=== PATIENT | female | born 1940 | race Caucasian/White ===

== ENCOUNTER 2017-01-17 08:20 | Emergency (ER) | payer MEDICARE ==
[2017-01-17 08:25] VITALS: BP 161/82
--- NOTE | 2017-01-17 08:57 | UC ---
Harry Gore Salem, scribed for Liv Davila MD on 01/17/17 at 0840 . Skin Complaint HPI - HPI Summary HPI Summary: Patient is a 76 y/o F who presents to the with a tick bite and erythema in left armpit for an unknown period of time. She states that her and her attempted to remove the tick last night and partially succeeded. She reports a hx of tick bites: 4 ticks last year with circles, but she denies a hx of Lyme dz. Pt reports gardening outside often. She would like to take prophylactic dose of doxy, as in the past. Patients medication reviewed this visit. - History of Current Complaint Stated Complaint: TICK BITE Hx Obtained From: Patient Onset/Duration: Gradual Onset, Lasting Days, Still Present Skin Exposure Onset/Duration: Days Ago Timing: Constant Onset Severity: Moderate Current Severity: Moderate Location: Other - Left armpit. Character: Redness Aggravating: Nothing Alleviating: Nothing Associated Signs & Symptoms: Positive: Negative - Allergy/Home Medications Allergies/Adverse Reactions: Allergies Allergy/AdvReac Type Severity Reaction Status Date / Time Sulfa Drugs Allergy Severe Hives Verified 01/17/17 08:36 Iodine Allergy Unknown Unknown Verified 01/17/17 08:36 Reaction Details Chromium [From Ephadrene] Allergy Difficulty Verified 01/17/17 08:46 Breathing Ephedrine [From Ephadrene] Allergy Difficulty Verified 01/17/17 08:36 Breathing Epinephrine Allergy Difficulty Verified 01/17/17 08:36 Breathing Garcinia Cambogia Allergy Difficulty Verified 01/17/17 08:46 [From Ephadrene] Breathing Levocarnitine Allergy Difficulty Verified 01/17/17 08:46 [From Ephadrene] Breathing Procaine [From Novocain] Allergy Unknown Verified 01/17/17 08:36 Reaction Details Pyridoxine [From Ephadrene] Allergy Difficulty Verified 01/17/17 08:46 Breathing [place] Species Allergy Difficulty Verified 01/17/17 08:46 [From Ephadrene] Breathing Tyrosine [From Ephadrene] Allergy Difficulty Verified 01/17/17 08:46 Breathing Vitamin B12 [From Ephadrene] Allergy Difficulty Verified 01/17/17 08:46 Breathing Home Medications: Home Medications Diphenhydramine HCl [Benadryl Allergy 25 MG CAP] 25 mg PO PRN 01/17/17 [History] Review of Systems Constitutional: Negative Skin: Other - Tick bite and erythema in left armpit. 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 Father of PE age 49. - Social History Alcohol Use: Daily Alcohol Amount: 1 DRINK Substance Use Type: None Smoking Status (MU): Never Smoked Tobacco - Immunization History Most Recent Tetanus Shot: Pt states up to date. Physical Exam Triage Information Reviewed: Yes Appearance: Well-Appearing, No Pain Distress, Thin Vital Signs: Initial Vital Signs Temp 97.3 F 01/17/17 08:24 Pulse 84 01/17/17 08:24 Resp 16 01/17/17 08:24 BP 161/82 01/17/17 08:24 Pulse Ox 99 01/17/17 08:24 Elevated BP noted. Vital Signs Reviewed: Yes Neck exam: Normal Respiratory: Positive: Lungs clear, Normal breath sounds Cardiovascular: Positive: RRR, No Murmur Skin Exam: Other - right axilla with erythematous patch 1.5 cm diameter with central induration, consistent with tick bite. Small mouth pieces removed with splinter forceps. Course/Dx - Course Course Of Treatment: single dose of doxy for prevention of Lyme disease. - Differential Diagnoses - Skin Complaint Differential Diagnoses: Other - tick bite. - Diagnoses Provider Diagnoses: tick bite Discharge - Discharge Plan Condition: Stable Disposition: HOME Prescriptions: DOXYcycline CAP(*) [DOXYcycline 100MG CAP(*)] 2 cap PO ONCE #2 cap Patient Education Materials: Tick Bite (ED) Referrals: Grover Soriano MD [Primary Care Provider] - Additional Instructions: Your blood pressure was elevated today (161/82). Please, follow up with your primary care provider within the next few weeks. You will take a single dose of doxycycline to decrease the risk of Lyme disease from the tick bite which you have had. The documentation as recorded by the Harry balbuena Salem accurately reflects the service I personally performed and the decisions made by me, Liv Davila MD.
== END 2017-01-17 09:00 | disposition home or self-care (01) ==
LOC: UCEAST 08:20
DX: S40.861A Insect bite (nonvenomous) of right upper arm, initial encounter (principal); W57.XXXA Bitten or stung by nonvenomous insect and other nonvenomous arthropods, initial encounter; Y93.9 Activity, unspecified; Y92.9 Unspecified place or not applicable; Y99.9 Unspecified external cause status; R03.0 Elevated blood-pressure reading, without diagnosis of hypertension; Z86.718 Personal history of other venous thrombosis and embolism
CPT/HCPCS: 99212; G0463

== ENCOUNTER 2017-01-23 08:49 | Emergency (ER) | payer MEDICARE ==
[2017-01-23 09:26] VITALS: BP 140/73
--- NOTE | 2017-01-23 09:56 | UC ---
Hand/Wrist HPI - HPI Summary HPI Summary: Puncture wound to right index finger a couple of days ago---unsure on what, tetanus is up to date, . I concerned because finger is increasingly tender and she no has pain to her pip joint - History Of Current Complaint Chief Complaint: GIANNIkin Stated Complaint: SWOLLEN FINGER Time Seen by Provider: 01/23/17 09:51 Hx Obtained From: Patient ?: No Mechanism Of Injury: Puncture Wound--Unsure on what "A few days ago" Onset/Duration: Sudden Onset, Lasting Days, Still Present, Worse Since - past 24 hours Severity Initially: Mild Severity Currently: Mild Pain Intensity: 3 Pain Scale Used: 0-10 Numeric Character Of Pain: Throbbing Alleviating: Rest Associated Signs And Symptoms: Positive: Swelling, Redness Related History: Dominant Hand Right - Allergies/Home Medications Allergies/Adverse Reactions: Allergies Allergy/AdvReac Type Severity Reaction Status Date / Time Sulfa Drugs Allergy Severe Hives Verified 01/17/17 08:36 Iodine Allergy Unknown Unknown Verified 01/17/17 08:36 Reaction Details Chromium [From Ephadrene] Allergy Difficulty Verified 01/17/17 08:46 Breathing Ephedrine [From Ephadrene] Allergy Difficulty Verified 01/17/17 08:36 Breathing Epinephrine Allergy Difficulty Verified 01/17/17 08:36 Breathing Garcinia Cambogia Allergy Difficulty Verified 01/17/17 08:46 [From Ephadrene] Breathing Levocarnitine Allergy Difficulty Verified 01/17/17 08:46 [From Ephadrene] Breathing Procaine [From Novocain] Allergy Unknown Verified 01/17/17 08:36 Reaction Details Pyridoxine [From Ephadrene] Allergy Difficulty Verified 01/17/17 08:46 Breathing [place] Species Allergy Difficulty Verified 01/17/17 08:46 [From Ephadrene] Breathing Tyrosine [From Ephadrene] Allergy Difficulty Verified 01/17/17 08:46 Breathing Vitamin B12 [From Ephadrene] Allergy Difficulty Verified 01/17/17 08:46 Breathing PMH/Surg Hx/FS Hx/Imm Hx Previously Healthy: Yes - Surgical History Surgical History: Yes Surgery Procedure, Year, and Place: TONSILS, 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 Father of PE age 49. - Social History Occupation: Retired Lives: With Family Alcohol Use: Daily Alcohol Amount: 1 DRINK Substance Use Type: None Smoking Status (MU): Never Smoked Tobacco Have You Smoked in the Last Year: No - Immunization History Most Recent Tetanus Shot: Pt states up to date. Review of Systems Constitutional: Negative Skin: Negative Eyes: Negative ENT: Negative Respiratory: Negative Cardiovascular: Negative Gastrointestinal: Negative Genitourinary: Negative Motor: Negative Neurovascular: Negative Musculoskeletal: Negative - right index finger, red, warm and swollen-no drainage, Arthralgia Neurological: Negative Psychological: Negative All Other Systems Reviewed And Are Negative: Yes Physical Exam Triage Information Reviewed: Yes Appearance: Well-Appearing, No Pain Distress, Well-Nourished Vital Signs: Initial Vital Signs Temp 97.9 F 01/23/17 09:05 Pulse 89 01/23/17 09:05 Resp 18 01/23/17 09:05 BP 140/73 01/23/17 09:05 Pulse Ox 100 01/23/17 09:05 Vital Signs Reviewed: Yes Eye Exam: Normal Eyes: Positive: Conjunctiva Clear ENT Exam: Normal ENT: Positive: Normal ENT inspection, Hearing grossly normal. Negative: Nasal congestion, Nasal drainage, Trismus, Muffled/hoarse voice Dental Exam: Normal Neck exam: Normal Neck: Positive: Supple, Nontender Respiratory Exam: Normal Respiratory: Positive: Chest non-tender, No respiratory distress, No accessory muscle use Cardiovascular Exam: Normal Cardiovascular: Positive: RRR, Pulses Normal, Brisk Capillary Refill Musculoskeletal Exam: Normal Musculoskeletal: Positive: Strength Intact, ROM Intact, Edema @ - distal right index finger Neurological Exam: Normal Neurological: Positive: Alert, Muscle Tone Normal Psychological Exam: Normal Skin Exam: Normal Skin: Positive: breakdown - pw in distal right index finger Hand/Wrist Course/Dx - Course Course Of Treatment: warm soaks, augmentin, dsd, follow with Dr. Louie - Differential Dx/Diagnosis Differential Diagnosis/HQI/PQRI: Bursitis, Cellulitis, Contusion, Fracture, Infection, Tendonitis Provider Diagnoses: PW with infection right distal index finger Discharge - Discharge Plan Condition: Stable Disposition: HOME Prescriptions: Amoxicillin/Clavulanate TAB* [Augmentin TAB 875*] 875 mg PO BID #20 tab Patient Education Materials: Warm Compress or Soak (ED), Amoxicillin/ Clavulanate Potassium (By mouth), DASH Eating Plan (ED), Hypertension (ED) Referrals: Grover Soriano MD [Primary Care Provider] - 1 Week Additional Instructions: Your Blood Pressure today was 140/83. Which is just a little high please follow this with Dr. Louie---
== END 2017-01-23 10:03 | disposition home or self-care (01) ==
LOC: UCEAST 08:49
DX: S61.230A Puncture wound without foreign body of right index finger without damage to nail, initial encounter (principal); L08.9 Local infection of the skin and subcutaneous tissue, unspecified; X58.XXXA Exposure to other specified factors, initial encounter; Y93.9 Activity, unspecified; Y92.9 Unspecified place or not applicable; Y99.9 Unspecified external cause status
CPT/HCPCS: 99212; G0463

== ENCOUNTER 2017-04-20 08:59 | Emergency (ER) | payer MEDICARE ==
[2017-04-20 09:09] VITALS: BP 150/86
--- NOTE | 2017-04-20 09:33 | UC ---
Skin Complaint HPI - HPI Summary HPI Summary: 76 yo female abraided right [place] about a week ago now area starting to turn red no f/c no d/c no n/v/d - History of Current Complaint Chief Complaint: UCSkin Time Seen by Provider: 04/20/17 09:20 Stated Complaint: RED AREA ON LEG Hx Obtained From: Patient Onset/Duration: Gradual Onset, Lasting Days Onset Severity: Mild Current Severity: Mild Pain Intensity: 1 Pain Scale Used: 0-10 Numeric Location: Discrete Character: Redness Aggravating: Touch Alleviating: Nothing Associated Signs & Symptoms: Positive: Tenderness Related History: Trauma - Allergy/Home Medications Allergies/Adverse Reactions: Allergies Allergy/AdvReac Type Severity Reaction Status Date / Time Sulfa Drugs Allergy Severe Hives Verified 04/20/17 09:09 Iodine Allergy Unknown Unknown Verified 04/20/17 09:09 Reaction Details Chromium [From Ephadrene] Allergy Difficulty Verified 04/20/17 09:09 Breathing Ephedrine [From Ephadrene] Allergy Difficulty Verified 04/20/17 09:09 Breathing Epinephrine Allergy Difficulty Verified 04/20/17 09:09 Breathing Garcinia Cambogia Allergy Difficulty Verified 04/20/17 09:09 [From Ephadrene] Breathing Levocarnitine Allergy Difficulty Verified 04/20/17 09:09 [From Ephadrene] Breathing Procaine [From Novocain] Allergy Unknown Verified 04/20/17 09:09 Reaction Details Pyridoxine [From Ephadrene] Allergy Difficulty Verified 04/20/17 09:09 Breathing [place] Species Allergy Difficulty Verified 04/20/17 09:09 [From Ephadrene] Breathing Tyrosine [From Ephadrene] Allergy Difficulty Verified 04/20/17 09:09 Breathing Vitamin B12 [From Ephadrene] Allergy Difficulty Verified 04/20/17 09:09 Breathing Review of Systems Constitutional: Negative Skin: Negative Eyes: Negative ENT: Negative Respiratory: Negative Cardiovascular: Negative Gastrointestinal: Negative Genitourinary: Negative Motor: Negative Neurovascular: Negative Musculoskeletal: Negative Neurological: Negative Psychological: Negative All Other Systems Reviewed And Are Negative: Yes PMH/Surg Hx/FS Hx/Imm Hx Previously Healthy: Yes - hx cellulitis and ascending lymphangitis - Surgical History Surgical History: Yes Surgery Procedure, Year, and Place: TONSILS, 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 Father of PE age 49. - Social History Alcohol Use: Daily Alcohol Amount: 1 DRINK Substance Use Type: None Smoking Status (MU): Never Smoked Tobacco Have You Smoked in the Last Year: No - Immunization History Most Recent Tetanus Shot: Pt states up to date. Physical Exam Triage Information Reviewed: Yes Appearance: Well-Appearing, No Pain Distress, Well-Nourished Vital Signs: Initial Vital Signs Temp 97.2 F 04/20/17 09:04 Pulse 78 04/20/17 09:04 Resp 20 04/20/17 09:04 BP 150/86 04/20/17 09:04 Pulse Ox 99 04/20/17 09:04 Vital Signs Reviewed: Yes Eyes: Positive: Conjunctiva Clear ENT: Positive: Hearing grossly normal. Negative: Nasal congestion, Nasal drainage, Tonsillar exudate, Trismus, Muffled/hoarse voice Neck: Positive: Supple, Nontender Respiratory: Positive: Lungs clear, Normal breath sounds, No respiratory distress Cardiovascular: Positive: RRR, No Murmur Musculoskeletal: Positive: ROM Intact, No Edema Neurological: Positive: Alert Skin Exam: Other - see image Course/Dx - Diagnoses Provider Diagnoses: cellulitis Discharge - Discharge Plan Condition: Stable Disposition: HOME Prescriptions: Cephalexin CAP* [Keflex CAP*] 500 mg PO QID #28 cap Patient Education Materials: Cellulitis (ED) Referrals: Grover Soriano MD [Primary Care Provider] - 5 Days (if not better) Additional Instructions: elevate moist heat recheck for worsening symptoms Images Front/Back of Body, Lg ([place]): 1 - eschar and surrounding erthyema (mild). about 1 cm ring of erthema surrounding initial abrasion
== END 2017-04-20 09:30 | disposition home or self-care (01) ==
LOC: UCEAST 08:59
DX: L03.115 Cellulitis of right lower limb (principal); Z88.4 Allergy status to anesthetic agent; Z88.2 Allergy status to sulfonamides
CPT/HCPCS: 99212; G0463

== ENCOUNTER 2018-02-24 09:39 | Emergency (ER) | payer MEDICARE ==
--- OUTSIDE RECORDS SUMMARY | 2018-02-24 09:45 | XMS REPORT ---
:1940 External Reference #:[id number] Author Organization [facility] Address [address] [place] [address] Phone [phone] Care Team Providers Name Role Phone Grover Soriano MD Primary Care Physician Unavailable Payers Type Date Identification Numbers Payment Provider Subscriber Medicare Primary Policy Number: [id number] Medicare Catherine Foley PayID: [id number] [address] [place] [address] [facility] Part B Policy Number: [id number] [facility] Catherine Foley PayID: [id number] [address] [place] [address] Problems Date Description Provider Status Onset: 07/02/2007 Cramp in lower leg associated with Billy Mcleod M.D.FACNora Onset: 07/02/2007 Hyperlipidemia Billy Mcleod M.D.,FACP Onset: 07/02/2007 Hypercoagulability state Billy Mcleod M.D.,FACP Onset: 04/15/2014 Homocystinemia Billy Mcleod M.D.,FACP Onset: 04/22/2015 Postmenopausal osteoporosis Billy Mcleod M.D.,FACP Note: wrist Onset: 04/30/2017 Restless legs Grover Soriano M.D.,FACP Active Onset: 07/02/2007 Hypocalcemia Grover Soriano M.D.,FACP Inactive Inactive: 04/10/2013 Onset: 07/24/2007 Pure hypercholesterolemia Grover Soriano M.D.,FACP Inactive Inactive: 04/10/2013 Onset: 04/10/2013 Disorder of bone Grover Soriano M.D.,LIZZP Inactive Inactive: 04/22/2015 Onset: 07/02/2007 Osteoporosis Grover Soriano M.D.,FACP Resolved Resolved: 04/10/2013 Family History Date Family Member(s) Problem(s) Comments Father Phlebitis blood clots : (age 40 Years) Father due to Pulmonary Embolism (PE) Mother Blood Disorder clots Mother due to Pulmonary () Embolism (PE) Mother Rickets Mother Diabetes, Non Insulin Dependent First Son Tet[place] as Munday First Daughter Crohn's Disease Siblings 4 now 3 First Brother due to Cancer, Colon () First Brother due to Cancer, () Prostate Second Brother due to Unknown Causes () First Sister Diabetes, Non Insulin gestational Dependent Second Sister Alcoholism Social History Type Date Description Comments Marital Status Occupation Retired Cigarette Use Former Cigarette Smoker for 8 years in 20s, social ETOH Use 04/24/2016 Occasionally consumes wine Recreational Drug Use Denies Drug Use Smoking Patient is a former smoker smoked 3 cigarettes a day for ten years. quit smoking when she was 24 General Hx Text 2 kids Allergies, Adverse Reactions, Alerts Date Description Reaction Status Severity Comments 07/02/2007 Ephedrine HCL active 07/02/2007 Sulfonamides active rash 07/02/2007 Iodine active 08/01/2010 Fosamax active esophageal irritation 06/05/2011 Epinephrine active chest pain, angina 04/15/2014 Hydrocodone inactive Medications Medication Date Status Form Strength Qnty SIG Indications Ordering Provider Ropinirole HCL 04/24/ Active Tablets 0.5mg 90tabs 1 tab by R25.2 Clarisse Brito 2015 mouth Vanessa Soriano, every Eugenia,EVELIA night Calcium Citrate 04/24/ Active Tablets twice a Grover + 2015 day Vanessa Soriano M.D.,FACP Vitamin C / Active Chewtabs 1000mg 60unit 1 po qd Unknown 0000 s Glucosamine 00/ Active Capsules 250-200mg 1 pill Unknown Chondroitin 0000 daily unsure of mgs Vitamin B / Active Tablets 1 by mouth Unknown Complex 0000 every day Cephalexin 01/08/ Hx Capsules 500mg 21caps three Grover 2018 - times a Vanessa Soriano, 01/15/ day by Eugenia,FACP 2018 mouth Magnesium Oxide 04/24/ Hx Tablets 400(241.3M 60tabs 1 by mouth R25.2 Grover 2016 - g) mg in evening Vanessa Soriano, 02/04/ M.DSamm,FACP 2018 Medrol 04/17/ Hx Tablets 4mg 1pak medrol Grover 2015 - carlos Soriano, 04/24/ as MSammDSamm,FACP 2016 directed ( Not Taking ) Medrol 04/02/ Hx Tablets 4mg 1pak medrol Grover 2015 - carlos Soriano, 04/08/ as MSammDSamm,FACP 2016 directed Cephalexin 01/09/ Hx Capsules 500mg 21caps take one R21 Sy 2015 - capsule Zahida, [employer] 01/15/ every 8 2015 hours for 7 days Medrol 12/29/ Hx Tablets 4mg 1pak medrol S40.862A Grover 2015 - carlos Soriano, 01/02/ as Eugenia,FACP 2016 directed Diazepam 12/29/ Hx Tablets 5mg 10tabs 1/2-1 tab S40.862A Grover 2015 - po qhs prn Vanessa Soriano, 01/09/ M.DSamm,FACP 2016 Nexium 04/22/ Hx Capsules 20mg 30caps take 1 Grover 2014 - DR peng Soriano, 12/29/ every M.DSamm,FACP 2016 morning 30 minutes prior to eating Benadryl 12/30/ Hx Tablets 25mg 30tabs 2 tabs qd Buzz Pepe 2013 - hs Mar, 02/21/ M.D. 2014 Ibuprofen 06/18/ Hx Tablets 600mg 90tabs tid prn 726.19 Grover 2012 Xochitl Soriano, 12/30/ M.D.,FACP 2013 Doxycycline 06/03/ Hx Tablets 100mg 8tabs 2 tabs po Grover Hyclate 2012 - x1 then Vanessa Soriano, 06/18/ prn MSammD.,FACP 2012 Prednisone 03/11/ Hx Tablets 10mg 50tabs 6 tabs qd 053.9 Grover 2012 - for 2 D. Christie, 04/10/ , then M.D.,FACP 2012 reduce by 1 tab every 2 days until finished Ciprofloxacin 01/02/ Hx Tablets 250mg 14tabs one po bid 558.9 Gay HCL 2012 - for 7 days Kevin M.DSamm 2012 Flexeril 11/24/ Hx Tablets 10mg 20tabs 1 po tid Grover 2012 - prn Vanessa Soriano, .D.,FACP 2012 Prednisone 01/16/ Hx Tablets 10mg 26tabs 5 tab x2 692.6 Grover 2012 - day, 4 tab D. Christie, 04/03/ x 2day, 3 M.D.,FACP 2011 tab x 1 day, 2 tab x1day, 1 tab x 1day Valacyclovir 11/20/ Hx Tablets 1gm 21tabs po q8h for 053.9 Grover HCL 2011 - 1 wk D. Christie, .D.,FACP 2011 Prednisone 11/20/ Hx Tablets 10mg 50tabs 6 tabs qd 053.9 Grover 2011 - for 2 D. Christie, 01/16/ , then M.D.,FACP 2011 reduce by 1 tab every 2 days until finished Calcium 500 06/05/ Hx Tablets 500mg 1 po tid Grover Soriano, .D.,FACP 2014 Potassimin 04/13/ Hx Tablets 75mg Buzz Manuel, .D. 2015 Beulah-3 1450 04/13/ Hx Capsules 725mg qd Buzz Manuel, .D. 2018 Lovenox 05/26/ Hx Solution 60mg/0.6ML 10unit sc q12h Grover Soriano, .DSamm,FACP 2008 Warfarin Sodium 05/26/ Hx Tablets 5mg 100tab use as Grover Soriano, MSammDSamm,FACP 2009 Calcium 05/24/ Hx Tablets 600mg bid po Grover 2008 Xochitl Soriano, 10/18/ M.D.,FACP 2011 Vitamin D 05/24/ Hx Capsules 1000Unit po qd Grover 2008 - Vanessa Soriano, M.D.,FACP 2018 Fish Oil 07/24/ Hx Capsules 1000mg 1 PO bid 272.0 Grover 2006 Xochitl Soriano, M.D.,FACP 2009 Niacinamide 07/24/ Hx Tablets 500mg qd 272.0 Grover Soriano, M.D.,FACP 2008 Calcium/Vitamin 07/02/ Hx Capsules bid Grover Puente 2006 - Vanessa Soriano, M.D.,FACP 2008 Amoxicillin 07/02/ Hx Tablets 500mg 40tabs 2 tabs po Grover 2006 - bid for 10 D. Christie, 07/28/ M.D.,FACP 2007 Folic Acid / Hx Tablets 1mg 90tabs 1 tablet Grover 0000 - po qday Vanessa Soriano, M.D.,[facility] 2016 Vitamin B 00/00/ Hx Capsules 1 po qd Unknown Complex 0000 - 2011 Vitamin E /00/ Hx Capsules 400Unit 1 po qd Unknown 0000 - 2010 Prednisone /00/ Hx Tablets 20mg 14tabs 2 by mouth Grover 0000 - every day Vanessa Soriano, 04/27/ 4 days, M.D.,FACP 2013 then 1.5 tab qd for 2 days, then 1 tab qd for 2 day, then 1/2 tab qd for 2 days Calcium 00/00/ Hx Tablets 300-300mg 1 by mouth Unknown Magnesium 750 0000 - at 2 . 2016 Immunizations CPT Code Status Date Vaccine Reaction Lot # [id number] Given 04/30/2017 Influenza Virus Vaccine, [id number] Quadrivalent, Split, Preservative Free 86996 Given 05/22/2016 Influenza Virus Vaccine, no reaction noted ... [id number] Quadrivalent, Split, hh Preservative Free 62193 Given 05/28/2015 Influenza Virus Vaccine, [id number] Quadrivalent, Split, Preservative Free 35073 Given 04/22/2015 Pneumococcal Conjugate [id number] Vaccine 13 Valent For Intramuscular Use 46552 Given 05/21/2014 Influenza Virus Vaccine, [id number] Quadrivalent, Split, Preservative Free 60954 Given 12/30/2013 Tdap - [id number] Tetanus/Diptheria/Acellular Pertussis 23460 Given 05/18/2013 Flu Vaccine Split Virus [id number] Preservative Free For Indiv 3Yr Older [id number] Given 05/24/2012 Fluvirin Im 3Yrs And Older 13873 Given 04/03/2012 Pneumonia Vaccine [id number] 66263 Given 06/05/2011 Zoster (Zostavax) [id number] 05912 Given 05/22/2010 Influenza Virus 3Yrs & Over [id number] 15691 Given 06/21/2009 Influenza Virus Vaccine, Pandemic Formulation 20951 Given 06/21/2009 Influenza Virus Vaccine, [id number] Pandemic Formulation 47753 Given 06/21/2009 Administration Swine Flu Shot 25414 Given 06/02/2009 Influenza Virus 3Yrs & Over 30184 Given 06/02/2009 Influenza Virus 3Yrs & Over [id number] 34790 Given 06/10/2008 Influenza Virus 3Yrs & Over 11429 Given 06/10/2008 Influenza Virus 3Yrs & Over [id number] 56479 Given 07/02/2007 Influenza Virus 3Yrs & Over 34842 Given 07/02/2007 Influenza Virus 3Yrs & Over [id number] 47847 Given 06/18/2001 Pneumonia Vaccine Vital Signs Date Vital Result Comment 02/04/2018 Height 67.5 inches 5'7.50" Weight 125.75 lb Heart Rate 82 /min BP Systolic 139 mmHg BP Diastolic 78 mmHg O2 % BldC Oximetry 97 % BMI (Body Mass Index) 19.4 kg/m2 01/08/2018 Height 67.5 inches 5'7.50" Weight 126.00 lb Heart Rate 94 /min BP Systolic Sitting 132 mmHg BP Diastolic Sitting 80 mmHg Body Temperature 99.2 F O2 % BldC Oximetry 98 % BMI (Body Mass Index) 19.4 kg/m2 04/30/2017 Height 67.5 inches 5'7.50" Weight 129.75 lb Heart Rate 74 /min BP Systolic 140 mmHg BP Diastolic 82 mmHg BP Systolic Recheck 130 mmHg BP Diastolic Recheck 85 mmHg Body Temperature 96.8 F O2 % BldC Oximetry 99 % BMI (Body Mass Index) 20.0 kg/m2 04/25/2017 Weight 128.25 lb Heart Rate 81 /min BP Systolic 130 mmHg BP Diastolic 80 mmHg Body Temperature 98.8 F O2 % BldC Oximetry 97 % 02/26/2017 Weight 128.50 lb Heart Rate 83 /min BP Systolic 132 mmHg BP Diastolic 74 mmHg Body Temperature 97.0 F O2 % BldC Oximetry 83 % 01/22/2017 Weight 132.75 lb W/Shoes Heart Rate 85 /min BP Systolic Sitting 140 mmHg BP Diastolic Sitting 72 mmHg Body Temperature 98.6 F O2 % BldC Oximetry 96 % 04/24/2016 Height 66.75 inches 5'6.75" Weight 124.00 lb Heart Rate 82 /min BP Systolic Sitting 112 mmHg BP Diastolic Sitting 72 mmHg Body Temperature 98.3 F O2 % BldC Oximetry 97 % BMI (Body Mass Index) 19.6 kg/m2 01/10/2016 Weight 128.25 lb Heart Rate 81 /min BP Systolic Sitting 142 mmHg BP Diastolic Sitting 84 mmHg Body Temperature 98.9 F O2 % BldC Oximetry 98 % 12/30/2015 Height 67 inches 5'7" Weight 129.00 lb Heart Rate 86 /min BP Systolic Sitting 124 mmHg BP Diastolic Sitting 82 mmHg O2 % BldC Oximetry 95 % BMI (Body Mass Index) 20.2 kg/m2 05/28/2015 Body Temperature 98.6 F 04/22/2015 Height 67 inches 5'7" Weight 132.50 lb Heart Rate 75 /min BP Systolic Sitting 108 mmHg BP Diastolic Sitting 64 mmHg Body Temperature 98.3 F O2 % BldC Oximetry 98 % BMI (Body Mass Index) 20.8 kg/m2 03/10/2015 Height 67.5 inches 5'7.50" Weight 134.00 lb Heart Rate 76 /min BP Systolic Sitting 134 mmHg BP Diastolic Sitting 76 mmHg O2 % BldC Oximetry 96 % BMI (Body Mass Index) 20.7 kg/m2 02/21/2015 Weight 137.00 lb BP Systolic Sitting 113 mmHg BP Diastolic Sitting 71 mmHg Body Temperature 99.9 F O2 % BldC Oximetry 97 % 04/27/2014 Height 67.5 inches 5'7.50" Weight 137.25 lb Heart Rate 96 /min BP Systolic Sitting 126 mmHg BP Diastolic Sitting 74 mmHg Respiratory Rate 16 /min Body Temperature 98.2 F O2 % BldC Oximetry 97 % BMI (Body Mass Index) 21.2 kg/m2 04/15/2014 Weight 138.00 lb 01/21/2014 Height 67.5 inches 5'7.50" Weight 136.25 lb Heart Rate 96 /min BP Systolic Sitting 136 mmHg BP Diastolic Sitting 80 mmHg Body Temperature 99.0 F BMI (Body Mass Index) 21.0 kg/m2 12/30/2013 Height 67 inches 5'7" Weight 135.75 lb Heart Rate 104 /min BP Systolic Sitting 118 mmHg BP Diastolic Sitting 68 mmHg Body Temperature 99.9 F BMI (Body Mass Index) 21.3 kg/m2 06/18/2013 Weight 140.75 lb Heart Rate 86 /min BP Systolic Sitting 128 mmHg BP Diastolic Sitting 78 mmHg 05/18/2013 Weight 139.50 lb Heart Rate 102 /min BP Systolic Sitting 122 mmHg BP Diastolic Sitting 78 mmHg Body Temperature 99.7 F BMI (Body Mass Index) 5.1 kg/m2 04/10/2013 Height 67.5 inches 5'7.50" Weight 141.50 lb Heart Rate 90 /min BP Systolic Sitting 120 mmHg BP Diastolic Sitting 80 mmHg O2 % BldC Oximetry 96 % BMI (Body Mass Index) 21.8 kg/m2 01/02/2013 Weight 141.00 lb Heart Rate 87 /min BP Systolic Sitting 106 mmHg BP Diastolic Sitting 68 mmHg Body Temperature 99.3 F 04/03/2012 Height 67.5 inches 5'7.50" Weight 145.00 lb Heart Rate 84 /min BP Systolic Sitting 116 mmHg BP Diastolic Sitting 80 mmHg Respiratory Rate 14 /min Body Temperature 99.6 F lt ear BMI (Body Mass Index) 22.4 kg/m2 01/17/2012 Height 67.5 inches 5'7.50" Weight 144.75 lb Heart Rate 84 /min BP Systolic Sitting 138 mmHg BP Diastolic Sitting 78 mmHg BMI (Body Mass Index) 22.3 kg/m2 11/21/2011 Weight 144.00 lb Heart Rate 98 /min BP Systolic Sitting 136 mmHg BP Diastolic Sitting 88 mmHg Body Temperature 98.3 F oral 06/05/2011 Height 67.5 inches 5'7.50" Weight 147.00 lb Heart Rate 76 /min BP Systolic Sitting 120 mmHg BP Diastolic Sitting 76 mmHg BMI (Body Mass Index) 22.7 kg/m2 08/01/2010 Weight 151.00 lb Heart Rate 84 /min BP Systolic Sitting 122 mmHg BP Diastolic Sitting 70 mmHg 05/09/2010 Weight 151.00 lb Heart Rate 96 /min BP Systolic Sitting 138 mmHg BP Diastolic Sitting 80 mmHg 04/13/2010 Weight 152.00 lb Heart Rate 85 /min BP Systolic Sitting 138 mmHg BP Diastolic Sitting 80 mmHg 07/29/2009 Weight 156.00 lb Heart Rate 100 /min BP Systolic Sitting 130 mmHg BP Diastolic Sitting 74 mmHg 06/28/2009 Height 68.5 inches 5'8.50" Weight 157.50 lb Heart Rate 87 /min BP Systolic Sitting 130 mmHg BP Diastolic Sitting 76 mmHg Body Temperature 97.5 F BMI (Body Mass Index) 23.6 kg/m2 05/24/2009 Height 68.5 inches 5'8.50" Weight 152.00 lb Heart Rate 84 /min BP Systolic Sitting 130 mmHg BP Diastolic Sitting 86 mmHg BMI (Body Mass Index) 22.8 kg/m2 07/28/2008 Height 68.5 inches 5'8.50" Weight 151.00 lb Heart Rate 70 /min BP Systolic Sitting 116 mmHg BP Diastolic Sitting 68 mmHg BMI (Body Mass Index) 22.6 kg/m2 07/24/2007 Height 68.5 inches 5'8.50" Weight 148.00 lb Heart Rate 82 /min BP Systolic Sitting 118 mmHg BP Diastolic Sitting 80 mmHg BMI (Body Mass Index) 22.2 kg/m2 07/02/2007 Height 68.5 inches 5'8.50" Weight 149.00 lb Heart Rate 78 /min BP Systolic Sitting 118 mmHg BP Diastolic Sitting 80 mmHg BMI (Body Mass Index) 22.3 kg/m2 Results Test Date Test Result H/L Range Note CBC Auto Diff 01/09/2018 White Blood Count 4.9 10^3/uL 3.5-10.8 Red Blood Count 4.07 10^6/uL 4.0-5.4 Hemoglobin 13.1 g/dL 12.0-16.0 Hematocrit 39 % 35-47 Mean Corpuscular Volume 96 fL 80-97 Mean Corpuscular Hemoglobin 32 pg High 27-31 Mean Corpuscular HGB Conc 34 g/dL 31-36 Red Cell Distribution Width 13 % 10.5-15 Platelet Count 203 10^3/uL 150-450 Mean Platelet Volume 8.3 um3 7.4-10.4 Abs Neutrophils 3.3 10^3/uL 1.5-7.7 Abs Lymphocytes 1.0 10^3/uL 1.0-4.8 Abs Monocytes 0.4 10^3/uL 0-0.8 Abs Eosinophils 0.1 10^3/uL 0-0.6 Abs Basophils 0 10^3/uL 0-0.2 Abs Nucleated RBC 0 10^3/uL Granulocyte % 68.5 % 38-83 Lymphocyte % 20.3 % Low 25-47 Monocyte % 7.9 % High 0-7 Eosinophil % 2.4 % 0-6 Basophil % 0.9 % 0-2 Nucleated Red Blood Cells % 0 Laboratory test 01/09/2018 Partial Thrombo Time PTT 26.4 seconds 26.0- 36.3 finding Inr/Protime 01/09/2018 Inr 0.90 0.77-1.02 Lipid Profile 04/30/2017 Triglycerides 61 mg/dL 1 (Trig/Chol/HDL) Cholesterol 212 mg/dL 2 HDL Cholesterol 79.5 mg/dL 3 LDL Cholesterol 120 mg/dL 4 Laboratory test finding 04/30/2017 Vitamin D Total 25(Oh) 41.1 ng/mL 30- 50 5 Vitamin B12 369 pg/mL 180-914 6 Basic Metabolic Panel 04/30/2017 Sodium 136 mmol/L 133-145 Potassium 4.6 mmol/L 3.5-5.0 Chloride 99 mmol/L Low 101-111 Co2 Carbon Dioxide 31 mmol/L 22-32 Anion Gap 6 mmol/L 2-11 Glucose 90 mg/dL 70-100 Blood Urea Nitrogen 11 mg/dL 6-24 Creatinine 0.77 mg/dL 0.51-0.95 BUN/Creatinine Ratio 14.3 8-20 Calcium 9.8 mg/dL 8.6-10.3 Egfr Non- 72.5 >60 Egfr 93.2 >60 7 Basic Metabolic Panel 04/30/2016 Sodium 136 mmol/L 133-145 Potassium 4.2 mmol/L 3.5-5.0 Chloride 100 mmol/L Low 101-111 Co2 Carbon Dioxide 32 mmol/L 22-32 Anion Gap 4 mmol/L 2-11 Glucose 63 mg/dL Low 70-100 Blood Urea Nitrogen 15 mg/dL 6-24 Creatinine 0.76 mg/dL 0.51-0.95 BUN/Creatinine Ratio 19.7 8-20 Calcium 8.9 mg/dL 8.6-10.3 Egfr Non- 73.8 >60 Egfr 94.9 >60 8 Laboratory test finding 04/30/2016 Magnesium 2.1 mg/dL 1.9-2.7 CBC Auto Diff 04/30/2016 White Blood Count 5.2 10^3/uL 3.5-10.8 Red Blood Count 4.12 10^6/uL 4.0-5.4 Hemoglobin 13.3 g/dL 12.0-16.0 Hematocrit 40 % 35-47 Mean Corpuscular Volume 96 fL 80-97 Mean Corpuscular Hemoglobin 32 pg High 27-31 Mean Corpuscular HGB Conc 34 g/dL 31-36 Red Cell Distribution Width 13 % 10.5-15 Platelet Count 187 10^3/uL 150-450 Mean Platelet Volume 8 um3 7.4-10.4 Abs Neutrophils 3.7 10^3/uL 1.5-7.7 Abs Lymphocytes 0.9 10^3/uL Low 1.0-4.8 Abs Monocytes 0.4 10^3/uL 0-0.8 Abs Eosinophils 0.1 10^3/uL 0-0.6 Abs Basophils 0 10^3/uL 0-0.2 Abs Nucleated RBC 0 10^3/uL Granulocyte % 71.7 % 38-83 Lymphocyte % 17.0 % Low 25-47 Monocyte % 7.4 % 1-9 Eosinophil % 2.9 % 0-6 Basophil % 1.0 % 0-2 Nucleated Red Blood Cells % 0 Laboratory test finding 04/30/2016 Vitamin B12 498 pg/mL 180-914 9 Liver Function Panel 04/30/2016 Total Protein 6.0 g/dL Low 6.4-8.9 Albumin 4.0 g/dL 3.2-5.2 Globulin 2.0 g/dL 2-4 Albumin/Globulin Ratio 2.0 1-3 Total Bilirubin 0.60 mg/dL 0.2-1.0 Direct Bilirubin 0.10 mg/dL 0.03-0.18 Indirect Bilirubin 0.5 mg/dL 0.3-1.0 Alkaline Phosphatase 45 U/L 34-104 Alt 15 U/L 7-52 Ast 19 U/L 13-39 Lipid Profile (Trig/Chol/HDL) 04/19/2016 Triglycerides 119 mg/dL 10 Cholesterol 277 mg/dL 11 HDL Cholesterol 90.9 mg/dL 12 LDL Cholesterol 162 mg/dL 13 Laboratory test finding 2015 Surgical Pathology SEE RESULT BELOW 14 Laboratory test finding 2015 Clotest SEE RESULT BELOW 15 Lipid Profile (Trig/Chol/HDL) 03/14/2015 Triglycerides 83 mg/dL 16 Cholesterol 235 mg/dL 17 HDL Cholesterol 70.0 mg/dL 18 LDL Cholesterol 148 mg/dL 19 Laboratory test finding 03/14/2015 Vitamin D Total 25(Oh) 46.0 ng/mL 30- 50 20 CBC Auto Diff 03/14/2015 White Blood Count 3.5 10^3/uL Low 4.8-10.8 Red Blood Count 4.37 10^6/uL 4.0-5.4 Hemoglobin 14.1 g/dL 12.0-16.0 Hematocrit 43 % 35-47 Mean Corpuscular Volume 98 fL High 80-97 Mean Corpuscular Hemoglobin 32 pg High 27-31 Mean Corpuscular HGB Conc 33 g/dL 31-36 Red Cell Distribution Width 13 % 10.5-15 Platelet Count 183 10^3/uL 150-450 Mean Platelet Volume 8 um3 7.4-10.4 Abs Neutrophils 2.0 10^3/uL 1.5-7.7 Abs Lymphocytes 1.0 10^3/uL 1.0-4.8 Abs Monocytes 0.2 10^3/uL 0-0.8 Abs Eosinophils 0.2 10^3/uL 0-0.6 Abs Basophils 0.1 10^3/uL 0-0.2 Abs Nucleated RBC 0 10^3/uL Granulocyte % 57.2 % 38-83 Lymphocyte % 27.9 % 25-47 Monocyte % 5.8 % 1-9 Eosinophil % 7.0 % High 0-6 Basophil % 2.1 % High 0-2 Nucleated Red Blood Cells % 0.1 Comp Metabolic Panel 03/14/2015 Sodium 137 mmol/L 133-145 Potassium 4.3 mmol/L 3.5-5.0 Chloride 101 mmol/L 101-111 Co2 Carbon Dioxide 32 mmol/L 22-32 Anion Gap 4 mmol/L 2-11 Glucose 91 mg/dL 70-100 Blood Urea Nitrogen 17 mg/dL 6-24 Creatinine 0.92 mg/dL 0.51-0.95 BUN/Creatinine Ratio 18.5 8-20 Calcium 9.5 mg/dL 8.6-10.3 Total Protein 6.5 g/dL 6.4-8.9 Albumin 4.5 g/dL 3.2-5.2 Globulin 2.0 g/dL 2-4 Albumin/Globulin Ratio 2.3 1-3 Total Bilirubin 0.80 mg/dL 0.2-1.0 Alkaline Phosphatase 46 U/L 34-104 Alt 14 U/L 7-52 Ast 19 U/L 13-39 Egfr Non- 59.4 >60 Egfr 76.3 >60 21 Laboratory test finding 01/25/2014 CRP High Sensitivity 0.75 mg/L 22 Lyme Disease Serology Negative Negative 23 CBC Auto Diff 01/19/2014 White Blood Count 5.2 10^3/uL 4.8-10.8 Red Blood Count 3.93 10^6/uL Low 4.0-5.4 Hemoglobin 12.9 g/dL 12.0-16.0 Hematocrit 37 % 35-47 Mean Corpuscular Volume 94 fL 80-97 Mean Corpuscular Hemoglobin 33 pg High 27-31 Mean Corpuscular HGB Conc 35 g/dL 31-36 Red Cell Distribution Width 13 % 10.5-15 Platelet Count 192 10^3/uL 150-450 Mean Platelet Volume 8 um3 7.4-10.4 Abs Neutrophils 3.7 10^3/uL 1.5-7.7 Abs Lymphocytes 0.9 10^3/uL Low 1.0-4.8 Abs Monocytes 0.3 10^3/uL 0-0.8 Abs Eosinophils 0.2 10^3/uL 0-0.6 Abs Basophils 0.1 10^3/uL 0-0.2 Abs Nucleated RBC 0 10^3/uL Granulocyte % 71.5 % 38-83 Lymphocyte % 17.8 % Low 25-47 Monocyte % 5.8 % 1-9 Eosinophil % 3.8 % 0-6 Basophil % 1.1 % 0-2 Nucleated Red Blood Cells % 0 Comp Metabolic Panel 01/19/2014 Sodium 139 mmol/L 133-145 Potassium 4.0 mmol/L 3.7-5.6 Chloride 104 mmol/L 101-111 Co2 Carbon Dioxide 29 mmol/L 22-32 Anion Gap 6 mmol/L 2-11 Glucose 88 mg/dL 70-100 Blood Urea Nitrogen 17 mg/dL 6-24 Creatinine 0.80 mg/dL 0.51-0.95 BUN/Creatinine Ratio 21.3 High 8-20 Calcium 9.5 mg/dL 8.6-10.3 Total Protein 6.7 g/dL 6.4-8.9 Albumin 4.2 g/dL 3.2-5.2 Globulin 2.5 g/dL 2-4 Albumin/Globulin Ratio 1.7 1-3 Total Bilirubin 0.50 mg/dL 0.2-1.0 Alkaline Phosphatase 57 U/L 34-104 Alt 21 U/L 7-52 Ast 23 U/L 13-39 Egfr Non- 69.9 >60 Egfr 89.9 >60 24 Laboratory test finding 01/19/2014 Magnesium 2.1 mg/dL 1.9-2.7 Troponin I 0.00 ng/mL <0.03 25 TSH (Thyroid Stimulating Horm) 1.50 IU/mL 0.34-5.60 Erythrocyte Sed Rate 11 mm/Hr 0-40 Laboratory test finding 05/19/2013 C Reactive Protein < 0.5 mg/dL Less than 0.5 CBC With Manual Diff 05/19/2013 White Blood Count 8.4 10^3/uL 4.8-10.8 Red Blood Count 3.93 10^6/uL Low 4.0-5.4 Hemoglobin 12.8 g/dL 12.0-16.0 Hematocrit 38 % 35-47 Mean Corpuscular Volume 96 fL 80-97 Mean Corpuscular Hemoglobin 33 pg High 27-31 Mean Corpuscular HGB Conc 34 g/dL 31-36 Red Cell Distribution Width 13 % 10.5-15 Platelet Count 261 10^3/uL 150-450 Mean Platelet Volume 9 um3 7.4-10.4 Abs Neutrophils 5.9 10^3/uL 1.5-7.7 Abs Lymphocytes 1.1 10^3/uL 1.0-4.8 Abs Monocytes 0.6 10^3/uL 0-0.8 Abs Eosinophils 0.7 10^3/uL High 0-0.6 Abs Basophils 0.1 10^3/uL 0-0.2 Abs Nucleated RBC 0.01 10^3/uL Neutrophil % 65 % 38-83 Lymphocytes % 19 % Low 25-47 Monocytes % 9 % 0-13 Eosinophils % 7 % High 0-6 RBC Morphology Normal Normal Comp Metabolic Panel 05/19/2013 Sodium 135 mmol/L 133-145 Potassium 4.4 mmol/L 3.5-5.0 Chloride 99 mmol/L Low 101-111 Co2 Carbon Dioxide 29.0 mmol/L 22-32 Anion Gap 7.0 mmol/L 2-11 Glucose 83 mg/dL 70-100 Blood Urea Nitrogen 16 mg/dL 6-24 Creatinine 0.90 mg/dL 0.50-1.40 BUN/Creatinine Ratio 17.8 8-20 Calcium 9.6 mg/dL 8.1-9.9 Total Protein 6.1 g/dL Low 6.2-8.1 Albumin 4.0 g/dL 3.2-5.2 Globulin 2.1 g/dL 2-4 Albumin/Globulin Ratio 1.9 1-3 Total Bilirubin 0.9 mg/dL 0.4-1.5 Alkaline Phosphatase 53 U/L 30-110 Alt 18 U/L 14-54 Ast 24 U/L 12-42 Egfr Non- 61.2 >60 Egfr 78.7 >60 26 Laboratory test finding 05/19/2013 Lyme Disease Serology Negative Negative 27 Urinalysis 05/19/2013 Urine Color [place] Urine Appearance Turbid Urine Specific [place] 1.027 1.010-1.030 Urine Esterase 1+ Negative Urine Nitrate Negative Negative Urine Urobilinogen Negative E.U./dL Negative Urine Protein Negative mg/dL Negative Urine pH 5.5 5-9 Urine Blood Negative Negative Urine Ketones Trace mg/dL Negative Urine Bilirubin Negative Negative Urine Glucose Negative mg/dL Negative Laboratory test finding 05/19/2013 Erythrocyte Sed Rate 18 mm/Hr 0-40 Urine Microscopic 05/19/2013 Urine WBC 1+ (<10 /hpf) None Seen Urine Mucus Present /lpf Absent Urine Epithelial Cells 1+ Urothelial /hpf None Seen Bacteria Urine 3+ None Seen Urine Culture And Sensitivities 05/19/2013 Urine Culture (SEE NOTE) 28 Vitamin D, 25 Hydroxy 04/07/2013 25-Hydroxy Vitamin D2 <4.0 ng/mL 25-Hydroxy Vitamin D3 49 ng/mL 25-Hydroxy Vitamin D Total 49 ng/mL 29 Lipid Profile (Trig/Chol/HDL) 04/07/2013 Triglycerides 81 mg/dL 40-200 Cholesterol 248 mg/dL High Less than 200 HDL Cholesterol 78 mg/dL High 40-60 30 Cholesterol/HDL Ratio 3.2 Average 1-4.44 LDL Cholesterol 153.8 High Less Than 100 31 Comp Metabolic Panel 04/07/2013 Sodium 136 mmol/L 133-145 Potassium 5.4 mmol/L High 3.5-5.0 Chloride 98 mmol/L Low 101-111 Co2 Carbon Dioxide 33.0 mmol/L High 22-32 Anion Gap 5.0 mmol/L 2-11 Glucose 91 mg/dL 70-100 Blood Urea Nitrogen 13 mg/dL 6-24 Creatinine 0.80 mg/dL 0.50-1.40 BUN/Creatinine Ratio 16.3 8-20 Calcium 9.4 mg/dL 8.1-9.9 Total Protein 5.8 g/dL Low 6.2-8.1 Albumin 3.7 g/dL 3.2-5.2 Globulin 2.1 g/dL 2-4 Albumin/Globulin Ratio 1.8 1-3 Total Bilirubin 0.7 mg/dL 0.4-1.5 Alkaline Phosphatase 64 U/L 30-110 Alt 28 U/L 14-54 Ast 25 U/L 12-42 Egfr Non- 70.1 >60 Egfr 90.2 >60 32 Laboratory test 11/21/2011 Culture <SEE 33 finding Sensitivity/Gram St NOTE> Virus Culture - Dermal <SEE NOTE> 34 Lipid Panel - [facility] 06/01/2011 CPK (Creatine Kinase) 58 U/L 0-170 Comp Metabolic Panel 06/01/2011 Sodium 138 mmol/L 135-145 Potassium 4.4 mmol/L 3.5-5.0 Chloride 101 mmol/L 101-111 Co2 (Carbon Dioxide) 31.0 mmol/L 22-32 Anion Gap 6.0 mmol/L 2-11 35 Glucose 81 mg/dL 70-100 BUN 15 mg/dL 6-24 Creatinine 0.8 mg/dL 0.50-1.40 One Over Creatinine 1.25 BUN/Creatinine Ratio 18.8 8-20 Calcium 9.3 mg/dL 8.1-9.9 Total Protein 6.6 GM/DL 6.2-8.1 Albumin 4.4 GM/DL 3.2-5.2 Globulin 2.2 GM/DL 2-4 Albumin/Globulin Ratio 2.0 1-3 Bilirubin Total 1.1 mg/dL 0.4-1.5 36 Alkaline Phosphatase 48 U/L 30-110 Alt (SGPT) 17 U/L 14-54 Ast (Sgot) 22 U/L 12-42 eGFR Non- 70.5 > 60 eGFR 90.7 > 60 37 Lipid Profile (Trig/Chol/HDL) 06/01/2011 Triglyceride 76 mg/dL 40-200 Cholesterol 247 mg/dL High Less Than 200 38 High Density Lipoprotein 75 mg/dL High 40-60 39 Cholesterol/HDL Ratio 3.29 AVERAGE 1-4.44 Low Density Lipoprotein 157 mg/dL High Less Than 100 40 Laboratory test finding 05/09/2010 Prolactin 6.51 NG/ML 1.0-25.0 [place] (Antinuclear Antibodies) 05/09/2010 Antinuclear AB NEGATIVE Negative Laboratory test finding 05/09/2010 Syphilis IgG NON-REACTIVE Nonreactive 41 Laboratory test finding 04/28/2010 Iron Total 123 g/dL 28-170 Testosterone Total < 10 ng/dL Low 10-75 Thyroperoxidase AB 4.6 IU/mL Less Than 9.0 Dhea Sulfate 67.3 g/dL <15-157 42 Comp Metabolic Panel 04/13/2010 Sodium 140 mmol/L 135-145 Potassium 4.3 mmol/L 3.5-5.0 Chloride 103 mmol/L 101-111 Co2 (Carbon Dioxide) 30.0 mmol/L 22-32 Anion Gap 7.0 mmol/L 2-11 43 Glucose 87 mg/dL 70-100 44 BUN 21 mg/dL 6-24 Creatinine 0.80 mg/dL 0.50-1.40 One Over Creatinine 1.20 BUN/Creatinine Ratio 26.3 High 8-20 Calcium 9.5 mg/dL 8.1-9.9 45 Total Protein 6.3 GM/DL 6.2-8.1 Albumin 4.4 GM/DL 3.2-5.2 Globulin 1.9 GM/DL Low 2-4 Albumin/Globulin Ratio 2.3 1-3 Bilirubin Total 0.7 mg/dL 0.4-1.5 46 Alkaline Phosphatase 51 U/L 30-110 Alt (SGPT) 20 U/L 14-54 Ast (Sgot) 21 U/L 12-42 eGFR Non- 75.2 > 60 eGFR 90.9 > 60 47 CBC With Electronic Diff 04/13/2010 White Blood Count 4.4 CUMM Low 4.8- 10.8 Red Cell Count 4.23 CUMM 4.2-5.4 Hemoglobin 13.7 g/dL 12.0-16.0 Hematocrit 40 % 35-47 Mean Corpuscular Volume 93 um3 79-97 Mean Corpuscular Hemoglob 32 pg High 27-31 Mean Corpuscular HGB Cone 35 g/dL 32-36 Redcell Distribution WDTH 13 % 10.5-15 Platelet Count 187 CUMM 150-450 Mean Platelet Volume 8.1 um3 7.4-10.4 Gran % 68.8 % 38-83 Lymph % 22.0 % Low 25-47 Mononuclear % 5.2 % 1-9 Eosinophil % 3.0 % 0-6 Basophil % 1.0 % 0-2 Abs Lymphs 1.0 1.0-4.8 Abs Mononuclear 0.2 0-0.8 Absolute Neutrophil Count 3.0 1.5-7.7 Abs Eosinophils 0.1 0-0.6 Abs Basophils 0 0-0.2 Laboratory test finding 04/13/2010 Erythrocyte Sed Rate 7 MM/HR 0-40 Thyroxine Free 0.98 NG/ML 0.61-1.24 TSH 1.36 MIU/ML 0.34-5.60 Lyme Disease Serology Negative Negative 48 Laboratory test finding 08/22/2009 D Dimer Quantitative < 200 Less Than 230 Vitamin D, 25 Hydroxy 07/26/2009 25-Hydroxy Vitamin D2 <4.0 ng/mL () 25-Hydroxy Vitamin D3 43 ng/mL () 25-Hydroxy Vitamin D Total 43 ng/mL () 49 Laboratory test finding 07/26/2009 Calcium Ionized 4.65 mg/dL 4.65-5.28 Comp Metabolic Panel 07/26/2009 Sodium 139 mmol/L 135-145 Potassium 4.5 mmol/L 3.5-5.0 Chloride 103 mmol/L 101-111 Co2 (Carbon Dioxide) 30.0 mmol/L 22-32 Anion Gap 6.0 mmol/L 2-11 50 Glucose 91 mg/dL 70-100 51 BUN 14 mg/dL 6-24 Creatinine 0.70 mg/dL 0.50-1.40 One Over Creatinine 1.40 BUN/Creatinine Ratio 20.0 8-20 Calcium 9.2 mg/dL 8.1-9.9 52 Total Protein 6.1 GM/DL Low 6.2-8.1 Albumin 4.2 GM/DL 3.2-5.2 Globulin 1.9 GM/DL Low 2-4 Albumin/Globulin Ratio 2.2 1-3 Bilirubin Total 0.9 mg/dL 0.4-1.5 53 Alkaline Phosphatase 63 U/L 30-110 Alt (SGPT) 21 U/L 14-54 Ast (Sgot) 24 U/L 12-42 eGFR Non- 87.7 > 60 eGFR 106.1 > 60 54 Lipid Profile (Trig/Chol/HDL) 07/26/2009 Triglyceride 49 mg/dL 40-200 Cholesterol 245 mg/dL High Less Than 200 55 High Density Lipoprotein 75 mg/dL High 40-60 56 Cholesterol/HDL Ratio 3.27 AVERAGE 1-4.44 Low Density Lipoprotein 160 mg/dL High Less Than 100 57 Protime W/ Inr 07/19/2009 Prothrombin Time 33.2 Inr 2.8 Protime W/ Inr 07/05/2009 Prothrombin Time 35.5 Inr 3.0 Protime 06/21/2009 Inr 2.03 High 0.97-1.03 58 Protime 24.1 SEC High 11.5-12.2 59 Protime W/ Inr 06/07/2009 Prothrombin Time 35.3 Inr 2.9 Protime W/ Inr 06/02/2009 Prothrombin Time 24.2 Inr 2.0 Protime W/ Inr 05/30/2009 Prothrombin Time 16.8 Inr 1.4 Surgical Pathology 10/27/2008 Surgical Pathology <SEE 60 NOTE> Lipid Profile 07/23/2008 Triglyceride 73 mg/dL 40-200 61 (Trig/Chol/HDL) Cholesterol 234 mg/dL High Less Than 200 61, 62 High Density Lipoprotein 68 mg/dL High 40-60 61, 63 Cholesterol/HDL Ratio 3.44 AVERAGE 1-4.44 61 Low Density Lipoprotein 151 mg/dL High Less Than 100 61, 64 Basic Metabolic Panel 07/23/2008 Sodium 141 mmol/L 135-145 61 Potassium 4.7 mmol/L 3.5-5.0 61 Chloride 104 mmol/L 101-111 61 Co2 (Carbon Dioxide) 34.0 mmol/L High 22-32 61 Anion Gap 3.0 mmol/L 2-11 61, 65 Glucose 96 mg/dL 70-100 61, 66 BUN 18 mg/dL 6-24 61 Creatinine 0.80 mg/dL 0.50-1.40 61 One Over Creatinine 1.20 61 BUN/Creatinine Ratio 22.5 High 8-20 61 Calcium 9.5 mg/dL 8.1-9.9 61, 67 CBC With Electronic Diff 07/08/2007 White Blood Count 3.7 CUMM Low 4.8- 10.8 61 Abs Basophils 0 0-0.2 61 Abs Eosinophils 0.3 0-0.6 61 Absolute Neutrophil Count 2.1 1.5-7.7 61 Abs Lymphs 0.9 Low 1.0-4.8 61 Abs Mononuclear 0.3 0-0.8 61 Basophil % 1.0 % 0-2 61 Hematocrit 41 % 35-47 61 Hemoglobin 14.1 g/dL 12.0-16.0 61 Eosinophil % 7.9 % High 0-6 61 Gran % 58.3 % 38-83 61 Lymph % 25.0 % 20-45 61 Mean Corpuscular HGB Cone 34 g/dL 32-36 61 Mean Corpuscular Hemoglob 32 pg High 27-31 61 Mean Corpuscular Volume 94 um3 79-97 61 Mean Platelet Volume 8.1 um3 7.4-10.4 61 Mononuclear % 7.8 % 1-9 61 Platelet Count 226 CUMM 150-450 61 Red Cell Count 4.39 CUMM 4.2-5.4 61 Redcell Distribution WDTH 12 % 10.5-15 61 Laboratory test finding 07/08/2007 Calcium Ionized 4.61 mg/dL Low 4.65- 5.28 61 Basic Metabolic Panel 07/08/2007 One Over Creatinine 1.11 61 Anion Gap 6.0 mmol/L 2-11 61, 68 BUN 21 mg/dL 6-24 61 Calcium 9.6 mg/dL 8.7-10.2 61 Chloride 104 mmol/L 101-111 61 Co2 (Carbon Dioxide) 31.0 mmol/L 22-32 61 Glucose 100 mg/dL 70-105 61 Potassium 4.7 mmol/L 3.5-5.0 61 Sodium 141 mmol/L 135-145 61 BUN/Creatinine Ratio 23.3 High 8-20 61 Creatinine 0.9 mg/dL 0.5-1.4 61 Lipid Profile 07/08/2007 Cholesterol/HDL Ratio 3.85 AVERAGE 1-4.44 61 (Trig/Chol/HDL) Cholesterol 250 mg/dL High Less Than 200 61, 69 Triglyceride 67 mg/dL 40-200 61 High Density Lipoprotein 65 mg/dL High 40-60 61, 70 Low Density Lipoprotein 172 mg/dL High Less Than 100 61, 71 Laboratory test finding 07/08/2007 Homocysteine 15.7 UMOL/L High 3.3-10.4 61, 72 1 Desirable <150 Borderline high 150-199 High 200-499 Very High >500 2 Desirable <200 Borderline high 200-239 High >239 3 Low <40 Desirable: 40-60 High: >60 4 Desirable: <100 mg/dL Near Optimal: 100-129 mg/dL Borderline High: 130-159 mg/dL High: 160-189 mg/dL Very High: >189 mg/dL 5 FASTING 10 HOUR 6 Normal Range 180 to 914 Indeterminate Range 145 to 180 Deficient Range <145 7 Because ethnic data is not always readily available, this report includes an eGFR for both -Americans and non- Americans. The National Kidney Disease Education Program (NKDEP) does not endorse the use of the MDRD equation for patients that are not between the ages of 18 and 70, are , have extremes of body size, muscle mass, or nutritional status, or are non- or non-. According to the National Kidney Foundation, irrespective of diagnosis, the stage of the disease is based on the level of kidney function: Stage Description GFR(mL/min/1.73 m(2)) 1 Kidney damage with normal or decreased GFR 90 2 Kidney damage with mild decrease in GFR 60-89 3 Moderate decrease in GFR 30-59 4 Severe decrease in GFR 15-29 5 Kidney failure <15 (or dialysis) 8 Because ethnic data is not always readily available, this report includes an eGFR for both -Americans and non- Americans. The National Kidney Disease Education Program (NKDEP) does not endorse the use of the MDRD equation for patients that are not between the ages of 18 and 70, are , have extremes of body size, muscle mass, or nutritional status, or are non- or non-. According to the National Kidney Foundation, irrespective of diagnosis, the stage of the disease is based on the level of kidney function: Stage Description GFR(mL/min/1.73 m(2)) 1 Kidney damage with normal or decreased GFR 90 2 Kidney damage with mild decrease in GFR 60-89 3 Moderate decrease in GFR 30-59 4 Severe decrease in GFR 15-29 5 Kidney failure <15 (or dialysis) 9 Normal Range 180 to 914 Indeterminate Range 145 to 180 Deficient Range <145 10 Desirable <150 Borderline high 150-199 High 200-499 Very High >500 11 Desirable <200 Borderline high 200-239 High >239 12 Low <40 Desirable: 40-60 High: >60 13 Desirable: <100 mg/dL Near Optimal: 100-129 mg/dL Borderline High: 130-159 mg/dL High: 160-189 mg/dL Very High: >189 mg/dL 14 SEE RESULT BELOW Name: ERICDARIANCATHERINE P : [address]: Nitesh Aguilar MD Acct: [id number] Unit: [id number] AGE: 75 Location: [facility] Re07/21/15 SEX: F Status: REG REF SPEC: [id number] KRISTINE: 07/21/15- SUBM DR: Nitesh Aguilar MD REQ: [id number] RECD: 07/21/151220 STATUS: EMILIA WHYTE DR: Grover Soriano MD _ ORDERED: LEVEL IV FINAL DIAGNOSIS Gastroesophageal junction, biopsy: -- Squamous and columnar mucosa with chronic inflammation and focal intestinal metaplasia. -- Negative for dysplasia. CLINICAL HISTORY Epigastric pain POST-OPERATIVE DIAGNOSIS Esophagus - ? short segment Rodriguez's biopsied, no erosion; stomach - small hiatal hernia, otherwise normal, no ulcer; duodenum - normal bulb to third portion. ? short segment Rodriguez's biopsied, hiatal hernia GROSS DESCRIPTION The specimen is received in formalin labeled, [place] Biopsy, and consists of two larsen-pink irregular soft tissue fragments averaging 0.2 x 0.2 x 0.1 cm, which are submitted entirely in one cassette. Signed (signature on file) Irene Sandoval MD 12/01 1334 END OF REPORT * ML=Testing performed at Main Lab DEPARTMENT OF PATHOLOGY, [address] [place] [address] Esau Elziondo M.D. Director [facility] # [id number] 15 SEE RESULT BELOW Name: CATHERINE FOLEY : [address]: Nitesh Aguilar MD Acct: [id number] Unit: [id number] AGE: 75 Location: [facility] Re07/21/15 SEX: F Status: REG REF SPEC: [id number] KRISTINE: 07/21/[address] [facility] [address]: Nitesh Aguilar MD REQ: [id number] RECD: 07/21/15 STATUS: LUIS WHYTE DR: Grover Soriano MD _ SOURCE: [facility]: ORDERED: Clotest Procedure Result Reported Site Clotest Final 07/22/15743 ML Clotest Negative * ML - MAIN LAB ([facility]) . END OF REPORT * ML=Testing performed at Main Lab DEPARTMENT OF PATHOLOGY, [address] [place] [address] Esau Elizondo M.D. Director [facility] # [id number] 16 Desirable <150 Borderline high 150-199 High 200-499 Very High >500 17 Desirable <200 Borderline high 200-239 High >239 18 Low <40 Desirable: 40-60 High: >60 19 Desirable: <100 mg/dL Near Optimal: 100-129 mg/dL Borderline High: 130-159 mg/dL High: 160-189 mg/dL Very High: >189 mg/dL 20 FASTING 10 HOUR 21 Because ethnic data is not always readily available, this report includes an eGFR for both -Americans and non- Americans. The National Kidney Disease Education Program (NKDEP) does not endorse the use of the MDRD equation for patients that are not between the ages of 18 and 70, are , have extremes of body size, muscle mass, or nutritional status, or are non- or non-. According to the National Kidney Foundation, irrespective of diagnosis, the stage of the disease is based on the level of kidney function: Stage Description GFR(mL/min/1.73 m(2)) 1 Kidney damage with normal or decreased GFR 90 2 Kidney damage with mild decrease in GFR 60-89 3 Moderate decrease in GFR 30-59 4 Severe decrease in GFR 15-29 5 Kidney failure <15 (or dialysis) 22 Low risk: <1.00 Average risk: 1.00-3.00 High risk: >3.00 23 Serologic response to B. burgdorferi infection is not detected, but cannot rule out early infection during which low or undetectable antibody levels to B. burgdorferi may be present. If clinically indicated, a new serum specimen should be submitted in 7-14 days. Test Performed by: [place] [address] Snow Shoveler: Mc García III, M.D. 24 Because ethnic data is not always readily available, this report includes an eGFR for both -Americans and non- Americans. The National Kidney Disease Education Program (NKDEP) does not endorse the use of the MDRD equation for patients that are not between the ages of 18 and 70, are , have extremes of body size, muscle mass, or nutritional status, or are non- or non-. According to the National Kidney Foundation, irrespective of diagnosis, the stage of the disease is based on the level of kidney function: Stage Description GFR(mL/min/1.73 m(2)) 1 Kidney damage with normal or decreased GFR 90 2 Kidney damage with mild decrease in GFR 60-89 3 Moderate decrease in GFR 30-59 4 Severe decrease in GFR 15-29 5 Kidney failure <15 (or dialysis) 25 Reference Range and Interpretation: TnI (ng/mL) Interpretation Less Than 0.03 ng/mL Not supportive of diagnosis of [place] 0.03 - 0.50 ng/mL Indeterminate: suggest serial studies if clinically indicated. Greater than 0.5 ng/mL Consistent with diagnosis of IN 26 Because ethnic data is not always readily available, this report includes an eGFR for both -Americans and non- Americans. The National Kidney Disease Education Program (NKDEP) does not endorse the use of the MDRD equation for patients that are not between the ages of 18 and 70, are , have extremes of body size, muscle mass, or nutritional status, or are non- or non-. According to the National Kidney Foundation, irrespective of diagnosis, the stage of the disease is based on the level of kidney function: Stage Description GFR(mL/min/1.73 m(2)) 1 Kidney damage with normal or decreased GFR 90 2 Kidney damage with mild decrease in GFR 60-89 3 Moderate decrease in GFR 30-59 4 Severe decrease in GFR 15-29 5 Kidney failure <15 (or dialysis) 27 Serologic response to B. burgdorferi infection is not detected, but cannot rule out early infection during which low or undetectable antibody levels to B. burgdorferi may be present. If clinically indicated, a new serum specimen should be submitted in 7-14 days. Test Performed by: [facility] - [address] [address] Snow Shoveler: Mc García III, M.D. 28 RUN DATE: 05/21/13 [facility] LAB LIVE PAGE 1 RUN TIME: [address] [place] [address] Specimen Inquiry Name: CATHERINE FOLEY : [address]: Clarisse Soriano MD Acct: [id number] Unit: [id number] AGE: 72 Location: [facility] Re05/19/13 SEX: F Status: REG REF SPEC: [id number] KRISTINE: 05/18/13-[address]: Grover Soriano MD REQ: [id number] RECD: 05/19/13 STATUS: COMP _ SOURCE: URINE SPDESC: ORDERED: Urine Culture QUERIES: Medent Number [id number] Procedure Result Verified Site Urine Culture Final 05/21/13- 1035 ML Organism 1 NORMAL CHUCK [place] Count 1-10,000 (Few) CFU/ML END OF REPORT * ML=Testing performed at Main Lab DEPARTMENT OF PATHOLOGY, [address] [place] [address] Esau Elizondo M.D. Director [facility] Permit #[id number] 29 -- REFERENCE VALUE -- 25-HYDROXY D TOTAL (D2+D3) Optimum levels in the normal population are 25-80 Test Performed by: [address] [address] Snow Shoveler: Mc García III, M.D. 30 HDL Interpretation: Undesirable: High Risk: Less than 40 mg/dL Desirable: Low Risk: Greater than 60 mg/dL 31 LDL Interpretation: Low Risk Optimal Level: LDL Less than 100 mg/dL Near or Above Optimal: LDL 100-129 mg/dL Borderline High Risk: LDL 130-159 mg/dL High Risk: LDL 160-189 mg/dL Very High Risk: LDL Greater than 189 mg/dL 32 Because ethnic data is not always readily available, this report includes an eGFR for both -Americans and non- Americans. The National Kidney Disease Education Program (NKDEP) does not endorse the use of the MDRD equation for patients that are not between the ages of 18 and 70, are , have extremes of body size, muscle mass, or nutritional status, or are non- or non-. According to the National Kidney Foundation, irrespective of diagnosis, the stage of the disease is based on the level of kidney function: Stage Description GFR(mL/min/1.73 m(2)) 1 Kidney damage with normal or decreased GFR 90 2 Kidney damage with mild decrease in GFR 60-89 3 Moderate decrease in GFR 30-59 4 Severe decrease in GFR 15-29 5 Kidney failure <15 (or dialysis) 33 RUN DATE: 11/23/11 [facility] NMI LIVE PAGE 1 RUN TIME: 1102 Specimen Inquiry RUN USER: INTERFACE Name: CATHERINE FOLEY Status: REG REF Re11/21/11 Age/Sex: 71/F Unit#: [id number] Location: [facility] : 38 SPEC #: [id number] KRISTINE: 11/21/11 STATUS: COMP REQ #: [id number] RECD: 11/21/[address] [facility] [address]: Christie CALLEJAS,Grover Mendez SOURCE: [facility] [place]: 11/21/[address] [facility] [address]: Nahed CALLEJAS, Latisha Monsalve SPDESC: SKIN ORDERED: CULT SENS/GS QUERIES: MEDENT REQUISITION # [id number] ACT WKST: B 11/23/11 #1 Procedure Result Verified Site > CULTURE SENSITIVITY Final 11/23/11- 1102 ML Organism 1 STAPHYLOCOCCUS AUREUS QUANTITY FEW 1. STAPHYLOCOCCUS AUREUS RX M.I.C. ------ --------- RIFAMPIN S <=0.5 LEVOFLOXACIN S <=0.12 TETRACYCLINE S <=1 CIPROFLOXACIN S <=0.5 CLINDAMYCIN S <=0.25 ERYTHROMYCIN S <=0.25 GENTAMICIN S <=0.5 * MOXIFLOXACIN S <=0.25 TIGECYCLINE S <=0.12 OXACILLIN S 0.5 LINEZOLID S 2 TRIMETH-SULFA S <=10 VANCOMYCIN S <=0.5 +AMPICILLIN/SUBLACTAM S +IMIPENEM S +CEFAZOLIN S +These results are deduced according to CLSI guidelines as they are related to tested antimicrobials with almost identical spectrum of activity. *These antibiotics are not available in the [facility] Formulary. Contact the Microbiology Department for any additional antibiotic reporting. > GRAM STAIN SMEAR Final 11/22/11- 0814 ML DEPARTMENT OF PATHOLOGY, [address] [place] [address] [place] State Permit #[id number] Esau Elizondo M.D. Director Reyna Kitchen M.D. [employer] Supervisor RUN DATE: 11/23/11 [facility] NMI LIVE PAGE 2 RUN TIME: 1102 Specimen Inquiry RUN USER: INTERFACE Name: CATHERINE FOLEY Status: REG REF Re11/21/11 Age/Sex: 71/F Unit#: [id number] Location: [facility]. : 38 -- -- CONTINU ED Procedure Result Verified Site GRAM STAIN SMEAR Final (continued) 11/22/11813 POLYS NONE SMEAR: FEW EPITHELIAL CELLS NO ORGANISMS SEEN [facility] State Permit #[id number] [address] [place] [address] DEPARTMENT OF PATHOLOGY, [address] [place] [address] [facility] Permit #[id number] Esau Elizondo M.D. Director Reyna Kitchen M.D. [employer] Powerplant Supervisor 34 RUN DATE: 11/24/11 [facility] NMI LIVE PAGE 1 RUN TIME: 846 Specimen Inquiry RUN USER: INTERFACE Name: CATHERINE FOLEY Status: REG REF Re11/21/11 Age/Sex: 71/F Unit#: [id number] Location: [facility] : 38 SPEC #: [id number] KRISTINE: 11/21/11 STATUS: COMP REQ #: [id number] RECD: 11/21/[address]: Christie CALLEJAS,Grover Mendez SOURCE: [facility] ENTR: 11/21/11-[address]: Nahed CALLEJAS, Latisha Monsalve SPDESC: SeeComment ORDERED: VIRUS CULT DERM COMMENTS: QUERIES: MEDENT REQUISITION # [id number] ACT WKST: SO 11/23/11 #2 Procedure Result Verified Site > VIRUS CULTURE - DERMAL Final 11/24/11- 0847 ML HERPES SIMPLEX RAPID PCR NEGATIVE VARICELLA BY RAPID PCR NEGATIVE Analyte Specific Reagent. This test was developed and its performance characteristics determined by Laboratory Medicine and Pathology, [facility], [facility]. This test has not been cleared or approved by the U.S. Food and Drug Administration. Test performed by: [facility] [address] [place], [place] [address] - [facility] State Permit #[id number] [address] [place] [address] DEPARTMENT OF PATHOLOGY, [address] [place] [address] [facility] Permit #[id number] Esau Elizondo M.D. Director Reyna Kitchen M.D. [employer]electric Powerplant Supervisor 35 Anion gap measurement may be of limited value in the presence of any alkalosis, especially in a combined acid base disorder. . 36 A metabolite of Naproxen, O-desmethylnaproxen, has been shown to interfere with the [place] method for measuring total bilirubin. Samples from patients who have taken Naproxen have shown spurious elevation in total bilirubin levels. 37 Because ethnic data is not always readily available, this report includes an eGFR for both -Americans and non- Americans. The National Kidney Disease Education Program (NKDEP) does not endorse the use of the MDRD equation for patients that are not between the ages of 18 and 70, are , have extremes of body size, muscle mass, or nutritional status, or are non- or non-. According to the National Kidney Foundation, irrespective of diagnosis, the stage of the disease is based on the level of kidney function: Stage Description GFR(mL/min/1.73 m(2)) 1 Kidney damage with normal or decreased GFR 90 2 Kidney damage with mild decrease in GFR 60-89 3 Moderate decrease in GFR 30-59 4 Severe decrease in GFR 15-29 5 Kidney failure <15 (or dialysis) 38 CHOLESTEROL INTERPRETATION: Desirable: Less than 200 MG/DL Borderline-High Risk: 200-239 MG/DL High-Risk: 240 MG/DL and over 39 HDL INTERPRETATION: Undesirable: High Risk: Less than 40 MG/DL Desirable: Low Risk: Greater than 60 MG/DL 40 LDL INTERPRETATION: Low Risk Optimal Level: LDL Less than 100 MG/DL Near or Above Optimal: LDL 100-129 MG/DL Borderline High Risk: LDL 130-159 MG/DL High Risk: LDL 160-189 MG/DL Very High Risk: LDL Greater than 189 MG/DL 41 Warning: A positive result is not useful for establishing a diagnosis of syphilis. In most situations, such a result may reflect a prior treated infection; a negative result can exclude a diagnosis of syphilis except for incubating or early primary disease. 42 Test Performed by: [facility] Dpt of Lab Med and Pathology [address] [place] [address] Snow Shoveler: Mc García III, M.D. 43 Anion gap measurement may be of limited value in the presence of any alkalosis, especially in a combined acid base disorder. . 44 Note change in reference range as of 04/08/08. The change was based on recommendations from the [place] [employer]. 45 Please note change in reference range effective 08 . 46 A metabolite of Naproxen, O-desmethylnaproxen, has been shown to interfere with the [place] method for measuring total bilirubin. Samples from patients who have taken Naproxen have shown spurious elevation in total bilirubin levels. 47 Because ethnic data is not always readily available, this report includes an eGFR for both -Americans and non- Americans. The National Kidney Disease Education Program (NKDEP) does not endorse the use of the MDRD equation for patients that are not between the ages of 18 and 70, are , have extremes of body size, muscle mass, or nutritional status, or are non- or non-. According to the National Kidney Foundation, irrespective of diagnosis, the stage of the disease is based on the level of kidney function: Stage Description GFR(mL/min/1.73 m(2)) 1 Kidney damage with normal or decreased GFR 90 2 Kidney damage with mild decrease in GFR 60-89 3 Moderate decrease in GFR 30-59 4 Severe decrease in GFR 15-29 5 Kidney failure <15 (or dialysis) 48 Serologic response to B. burgdorferi infection is not detected, but cannot rule out early infection during which low or undetectable antibody levels to B. burgdorferi may be present. If clinically indicated, a new serum specimen should be submitted in 7-14 days. Test Performed by: [facility] Dpt of Lab Med and Pathology [address] [place] [address] Snow Shoveler: Mc García III, M.D. 49 -- REFERENCE VALUE -- 25-HYDROXY D TOTAL (D2+D3) Optimum levels in the normal population are 25-80 Test Performed by: [facility] Dpt of Lab Med and Pathology [address] [place], [place] [address] Snow Shoveler: Mc García III, M.D. 50 Anion gap measurement may be of limited value in the presence of any alkalosis, especially in a combined acid base disorder. . 51 Note change in reference range as of 04/08/08. The change was based on recommendations from the [place] [employer]. 52 Please note change in reference range effective 08 . 53 A metabolite of Naproxen, O-desmethylnaproxen, has been shown to interfere with the [place] method for measuring total bilirubin. Samples from patients who have taken Naproxen have shown spurious elevation in total bilirubin levels. 54 Because ethnic data is not always readily available, this report includes an eGFR for both -Americans and non- Americans. The National Kidney Disease Education Program (NKDEP) does not endorse the use of the MDRD equation for patients that are not between the ages of 18 and 70, are , have extremes of body size, muscle mass, or nutritional status, or are non- or non-. According to the National Kidney Foundation, irrespective of diagnosis, the stage of the disease is based on the level of kidney function: Stage Description GFR(mL/min/1.73 m(2)) 1 Kidney damage with normal or decreased GFR 90 2 Kidney damage with mild decrease in GFR 60-89 3 Moderate decrease in GFR 30-59 4 Severe decrease in GFR 15-29 5 Kidney failure <15 (or dialysis) 55 CHOLESTEROL INTERPRETATION: Desirable: Less than 200 MG/DL Borderline-High Risk: 200-239 MG/DL High-Risk: 240 MG/DL and over 56 HDL INTERPRETATION: Undesirable: High Risk: Less than 40 MG/DL Desirable: Low Risk: Greater than 60 MG/DL 57 LDL INTERPRETATION: Low Risk Optimal Level: LDL Less than 100 MG/DL Near or Above Optimal: LDL 100-129 MG/DL Borderline High Risk: LDL 130-159 MG/DL High Risk: LDL 160-189 MG/DL Very High Risk: LDL Greater than 189 MG/DL 58 Recommended INR for Patients on Oral Anticoagulants Prophylaxis 2.0 - 3.0 Treatment of thrombosis 2.0 - 3.0 Prevention of embolism 2.0 - 3.0 Prevention of embolism from prosthetic heart valves 2.5 - 3.5 59 DIAGNOSIS,TREATMENT,AND THERAPY MUST BE BASED ON THE INR VALUE ALONE. 60 ---- RUN DATE: 10/29/08 [facility] NMI LIVE PAGE 1 RUN TIME: 1656 Specimen Inquiry RUN USER: INTERFACE -- Name: CATHERINE FOLEY Status: REG REF Re10/27/08 Age/Sex: 68/F Unit#: [id number] Location: [facility] : 38 -- Specimen: [id number] SOUT Spec Date: 10/27/[address]: Fidel SANTILLAN Spec Type: SURGICAL P Received: 10/28/08-1157 Copies to: Grover glynn MD SPECIMEN RIGHT FOREHEAD HISTORY PRE-OP DIAGNOSIS: Actinic lesion versus neoplasm CLINICAL INFORMATION: Crusty forehead lesion GROSS DESCRIPTION The specimen is received in formalin labelled Catehrine Foley, Right Forehead, and consists of a skin biopsy measuring 0.5 x 0.5 x 0.3 cm. The surface of the skin is hyperkeratotic. The specimen is bisected. Submitted entirely, one cassette. DIAGNOSIS Skin, right forehead, biopsy: Hyperplastic actinic keratosis. Signed Electronically by: REYNA KITCHEN 10/29/08 1657 -- -- DEPARTMENT OF PATHOLOGY, [address] [place] [address] [facility] Permit #[id number] Esau Elizondo M.D. Director Reyna Kitchen M.D. Chromium Plater Dir shankar -- 61 FASTING 62 CHOLESTEROL INTERPRETATION: Desirable: Less than 200 MG/DL Borderline-High Risk: 200-239 MG/DL High-Risk: 240 MG/DL and over 63 HDL INTERPRETATION: Undesirable: High Risk: Less than 40 MG/DL Desirable: Low Risk: Greater than 60 MG/DL 64 LDL INTERPRETATION: Low Risk Optimal Level: LDL Less than 100 MG/DL Near or Above Optimal: LDL 100-129 MG/DL Borderline High Risk: LDL 130-159 MG/DL High Risk: LDL 160-189 MG/DL Very High Risk: LDL Greater than 189 MG/DL 65 Anion gap measurement may be of limited value in the presence of any alkalosis, especially in a combined acid base disorder. . 66 Note change in reference range as of 04/08/08. The change was based on recommendations from the [place] [employer]. 67 Please note change in reference range effective 08 . 68 Anion gap measurement may be of limited value in the presence of any alkalosis, especially in a combined acid base disorder. . 69 Classification: High . 70 Classification: High . 71 CALCULATED LDL APPROXIMATES THE VALUE OF A DIRECT LDL MEASUREMENT. Classification: High . 72 REFERENCE RANGE FOR HOMOCYSTEINE (UMOL/L): AGE MALES FEMALES 0 - 19 Y 4.3 - 9.9 3.3 - 7.2 20 - 39 Y 4.3 - 11.4 3.3 - 10.4 40 - 59 Y 4.3 - 12.9 3.3 - 10.2 > 59 Y 4.3 - 15.3 3.3 - 11.6 THE ESTABLISHED UPPER REFERENCE RANGE CUT-OFF (HIGH FLAG) LISTED IN THIS REPORT IS GENDER SPECIFIC AND BASED ON THE 95TH PERCENTILE FOR A HEALTHY 20-39 YEAR OLD POPULATION (EXCLUDING WOMEN) WITH AMPLE SERUM FOLATE AND B12 LEVELS, AND NO EVIDENCE OF RENAL DISEASE. EXPECTED RANGES FOR HOMOCYSTEINE VARY BY AGE, GENDER, RACE, NUTRITIONAL STATUS (FOLATE AND B12 LEVELS), RENAL FUNCTION AND ALSO BY HORMONAL STATUS, OR INSULIN RESISTANCE. HIGH VALUES ARE SEEN IN ABOUT HALF OF PATIENTS TESTED FROM OLDER AGE GROUPS. HIGHER SERUM HOMOCYSTEINE LEVELS ARE ASSOCIATED WITH INCREASED RISK OF CORONARY HEART DISEASE. TEST PERFORMED BY: [facility] [id number] [place] [address] Procedures Date CPT Code Description Status 02/04/2018 28093 EKG Tracing & Interpretation Completed 05/06/2017 Mammogram Completed 04/11/2016 Mammogram Completed 04/28/2015 Bone Mineral Density Test Completed 06/25/2014 Mammogram Completed 03/27/2012 Bone Mineral Density Test Completed 06/08/2011 Mammogram Completed 02/16/2011 72806 Rad Exam; Hip Unilat Comp Completed 02/16/2011 91725 Rad Exam; Pelvis Completed 07/12/2009 Bone Mineral Density Test Completed 07/08/2007 Bone Mineral Density Test Completed Encounters Type Date Location Provider CPT E/M Dx Office Visit 01/08/2018 [facility] Internal Grover Soriano, 18005 L03.116 3:40p Medicine [address], M.D.,FACP Office Visit 04/25/2017 [facility] Internal Betzy Davidson, N.P. 43654 S80.11xD 11:40a [facility] Office Visit 02/26/2017 [facility] [place] [address] D48.5 11:40a Medicine [facility] Office Visit 01/22/2017 [facility] Grover Soriano, 79120 S40.861D 4:40p Linnea Gonzalez M.D.,FACP Office Visit 04/24/2016 [facility] Internal Grover Soriano, 02938 Z00.00 9:10a [facility].,[facility] M81.0 R25.2 R63.4 Office Visit 01/10/2016 10:20a [facility] [place] [address] R21 [place] W57.xxxA Office Visit 12/30/2015 9:20a [facility] Internal Grover Soriano, 95621 S40.862A Medicine - Tbfrancheska Chavez M.D.,FACP Office Visit 04/22/2015 8:20a [facility] Internal Grover Soriano, 86515 V70.0 Medicine - Tbfrancheska Chavez M.D.,FACP 272.2 535.50 281.1 733.01 V76.10 v03.82 Office Visit 03/10/2015 3:40p [facility] Internal [facility] Grover Soriano, 40316 535.51 - Tbfrancheska Chavez M.D.,FACP Office Visit 02/21/2015 2:30p [facility] Internal [facility] Grover Soriano, 27845 453.40 - [place] Scott Bello,FACP Office Visit 04/15/2014 3:40p [facility] Internal Medicine Grover Soriano, 96625 708.1 - Carlos Bello,FACP Office Visit 01/21/2014 10:10a [facility] Internal Medicine Grover Soriano, 12750 446.5 - Carlos Bello,FACP 784.0 Office Visit 12/30/2013 1:20p [facility] Internal Medicine Buzz SheltonSamm Manuel, 85292 916.4 - Carlos Bello E906.4 v06.1 Office Visit 07/02/2013 10:00a [facility] M.D. 93542 726.10 BelloMLisa Office Visit 06/18/2013 11:50a [facility] Internal [facility] Grover Soriano, 77195 726.19 Carlos Bello,FACP Office Visit 05/18/2013 3:00p [facility] Internal [facility] Grover Soriano, 34628 722.91 Carlos Bello,FACP 733.99 780.60 v04.81 Office Visit 04/10/2013 10:00a [facility] Internal [facility] Grover Soriano, 44639 V70.0 - Carlos Bello,FACP 733.99 327.52 722.91 Office Visit 01/02/2013 12:40p [facility] Internal Medicine Gay Brown M.D. 16703 558.9 - [place] Office Visit 04/03/2012 2:00p [facility] Internal Medicine Grover Soriano, 71224 V70.0 - Carlos Bello,FACP 733.09 272.2 V03.82 Office Visit 01/17/2012 9:00a [facility] Internal Medicine Divina Marques, N.PSamm 71354 692.6 - [place] Office Visit 11/21/2011 9:50a [facility] Internal Medicine Grover Soriano, 38495 053.9 - Carlos Bello,FACP 611.79 Office Visit 06/05/2011 9:10a DO Not Use [employer]vertising [employer] AT Grover Soriano, 89181 V72.81 Ervin Bello,FACP 232.3 733.90 327.52 V76.10 V76.51 846.1 v04.89 Office Visit 02/16/2011 1:30p [facility] M.D. 11707 726.5 C.M.A. Office Visit 08/01/2010 2:00p DO Not Use Advertising [employer] AT [facility], 05729 733.00 [facility]FACP 272.0 524.70 Office Visit 05/09/2010 3:00p DO Not Use Advertising [employer] AT [facility], 75652 704.00 [facility] Office Visit 04/13/2010 11:40a DO Not Use Advertising Display Rotator AT [facility], 03884 780.79 [facility] 704.00 Office Visit 07/29/2009 2:20p DO Not Use [employer]vertising [employer] AT [facility], 96973 453.40 [facility],FACP 733.09 275.41 272.0 724.1 Office Visit 06/28/2009 1:20p DO Not Use Advertising [employer] AT [facility], 79760 453.40 [facility] Office Visit 05/31/2009 10:20a DO Not Use Advertising Display [employer]ator AT [facility], 22422 453.40 [facility],FACP V58.61 Office Visit 05/24/2009 11:20a DO Not Use Advertising [employer] AT [facility], 36757 733.09 [facility],FACP 275.41 823.21 453.40 272.4 Office Visit 07/28/2008 2:40p DO Not Use Advertising [employer] AT [facility], 49734 275.41 [facility],FACP 733.00 272.4 V76.51 Office Visit 07/24/2007 1:00p DO Not Use Advertising Display [employer] AT [facility], 77280 733.00 [facility],FACP 275.41 272.0 Office Visit 07/02/2007 1:00p DO Not Use Advertising [employer] AT Grover Soriano, 39556 327.52 Ervin Bello,FACP 733.00 275.41 272.4 289.82 V04.81 Plan of Care Future Appointment(s):05/06/2018 10:20 am - Grover Soriano M.D.,FACP at [facility] Internal Medicine [facility]02/04/2018 - Grover Soriano M.D.,FACPR00.2 PalpitationsNew Orders:Holter MonitorComments:Discussed dizziness may be due to low blood pressure. Other causes of dizziness may be dehyrdration or a virus. Please receive bloodwork today at [facility]. We will call you about the results anddiscuss further treatment shortly. Discussed having a holter monitor in order to evaluate what may be causing your palpitations. Please follow the directions for the holter monitor as discussed by the nurse.R42 Dizziness and giddiness
[2018-02-24 10:11] VITALS: BP 155/93
--- NOTE | 2018-02-24 10:48 | UC ---
Skin Complaint HPI - HPI Summary HPI Summary: 77 y/o female presents to the urgent care c/o tick bite in her left lower leg since yesterday 02/23/2018. Pt reports she usually does gardening. Her removed tick, but she thinks head still embedded. Pt doesn't know how long was there. Pt has Hx of tick bites in the past and has taken prophylactic treatment. Pt denies fever, joint pain, PAOVN, SOB. chest pain, abdominal pain, N/V /D. - History of Current Complaint Chief Complaint: UCSkin Time Seen by Provider: 02/24/18 10:46 Stated Complaint: TICK BITE Hx Obtained From: Patient ?: No Onset/Duration: Sudden Onset, Lasting Days - 1 day, Resolved - removed tick last night Skin Exposure Onset/Duration: Days Ago - 1 day Timing: Constant Onset Severity: Mild Current Severity: Mild Pain Intensity: 0 Pain Scale Used: 0-10 Numeric Location: Discrete - left lower leg tik bite Character: Redness Aggravating Factor(s): Touch Alleviating Factor(s): Other - tick removal Associated Signs & Symptoms: Positive: Rash - red rash around tick bite. Negative: Fever, Chills Related History: Possible Reaction to: Insect - Allergy/Home Medications Allergies/Adverse Reactions: Allergies Allergy/AdvReac Type Severity Reaction Status Date / Time amino acids [From Ephadrene] Allergy Difficulty Verified 02/24/18 11:04 Breathing chromium [From Ephadrene] Allergy Difficulty Verified 02/24/18 11:04 Breathing cyanocobalamin (vitamin B12) Allergy Difficulty Verified 02/24/18 11:04 [From Ephadrene] Breathing epinephrine Allergy Difficulty Verified 02/24/18 11:08 Breathing herbal complex no. 35 Allergy Difficulty Verified 02/24/18 11:04 [From Ephadrene] Breathing iodine Allergy Unknown Verified 02/24/18 11:08 Reaction Details MS Garcinia Cambogia Allergy Difficulty Verified 02/24/18 10:02 [From Ephadrene] Breathing MS Levocarnitine Allergy Difficulty Verified 02/24/18 10:02 [From Ephadrene] Breathing MS Procaine [From Novocain] Allergy Unknown Verified 02/24/18 10:02 Reaction Details MS Pyridoxine Allergy Difficulty Verified 02/24/18 10:02 [From Ephadrene] Breathing MS Elizabeth Species Allergy Difficulty Verified 02/24/18 10:02 [From Ephadrene] Breathing MS Tyrosine [From Ephadrene] Allergy Difficulty Verified 02/24/18 10:02 Breathing procaine Allergy Unknown Verified 02/24/18 11:08 Reaction Details pyridoxine [From Ephadrene] Allergy Difficulty Verified 02/24/18 11:04 Breathing Sulfa (Sulfonamide Allergy Hives Verified 02/24/18 11:08 Antibiotics) Home Medications: Home Medications diPHENhydraMINE PO* [Benadryl PO 25 MG TAB*] 25 mg PO BEDTIME PRN 02/24/18 [ History Confirmed 02/24/18] rOPINIRole TAB* [Requip TAB*] 1 mg PO BEDTIME 02/24/18 [History Confirmed ] Review of Systems Constitutional: Negative Skin: Other - tick bite in left lower leg Eyes: Negative ENT: Negative Respiratory: Negative Cardiovascular: Negative Gastrointestinal: Negative Genitourinary: Negative Motor: Negative Neurovascular: Negative Musculoskeletal: Negative Neurological: Negative Psychological: Negative Is Patient Immunocompromised?: No All Other Systems Reviewed And Are Negative: Yes PMH/Surg Hx/FS Hx/Imm Hx Previously Healthy: Yes Other Endocrine History: leg cramps - Surgical History Surgical History: Yes Surgery Procedure, Year, and Place: TONSILS, 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 Physical Exam - Summary Physical Exam Summary: Vital Signs Reviewed: Yes General: well developed, well nourished female sitting in the examining table w/ o any apparent distress. Eyes: Positive: Conjunctiva Clear - PERRLA, EOMI ENT: Positive: Normal ENT inspection, Hearing grossly normal, Pharynx normal, TMs normal Neck: Positive: Supple, Nontender, No Lymphadenopathy Respiratory: Positive: Chest nontender, Lungs clear, Normal breath sounds Cardiovascular: Positive: RRR, No Murmur, Pulses Normal Abdomen Description: Positive: Nontender, No Organomegaly, Soft. Negative: CVA Tenderness (R), CVA Tenderness (L) Bowel Sounds: Positive: Present Musculoskeletal: Positive: Strength Intact, ROM Intact, No Edema Neurological Exam: Normal Psychological Exam: Normal Skin: Positive: rashes - Proximal lateral aspect of Left lower leg with tick bite with surrounding erythema, non tender to palpation. tick no longer present , no swelling or drainage observed. Triage Information Reviewed: Yes Vital Signs: Initial Vital Signs Temp 97.9 F 02/24/18 10:05 Pulse 80 02/24/18 10:05 Resp 18 02/24/18 10:05 BP 155/93 02/24/18 10:05 Pulse Ox 97 02/24/18 10:05 Course/Dx - Course Course Of Treatment: 77 y/o female presents to the urgent care c/o tick bite in her left lower leg since yesterday 02/23/2018. Pt reports she usually does gardening. Her removed tick, but she thinks head still embedded. Pt doesn't know how long was there. Pt has Hx of tick bites in the past and has taken prophylactic treatment. Pt denies fever, joint pain, PAVON, SOB. chest pain, abdominal pain, N/V/D. Hx obtained. After remnants tick removal and the skin cleansing. Antibiotic prophylaxis with Doxycycline given to the patient to prevent lyme Disease.. Pt tolerated well medication. Pt advised to observe the area for the development or Erythema Migrans for upto 30 days following exposure. Advised if he develops fever or erythema Migrans to return to the clinic or PCP for further treatment .Pt's BP is elevated today advised to decrease salt in diet, monitor BP and f/u with PCP for further management. Pt understood and agreed with plan of care. - Differential Diagnoses - Skin Complaint Differential Diagnoses: Abscess, Cellulitis, Scabies, Tick Born Illness, Urticaria - Diagnoses Provider Diagnoses: 1- Left lower leg tick bite. 2- Elevated BP w/o Hx of HTN Discharge - Sign-Out/Discharge Documenting (check all that apply): Patient Departure - D/C home - Discharge Plan Condition: Stable Disposition: HOME Prescriptions: Bacitracin OINTMENT* 1 applic TOPICAL BID #1 tube Patient Education Materials: Tick Bite (ED), Low-Sodium Diet (ED) Referrals: Luis CALLEJAS,Eddie Mendez [Medical Doctor] - If Needed Grover Soriano MD [Primary Care Provider] - 2 Weeks Additional Instructions: 1- Please observe the area for the development or Erythema Migrans for upto 30 days following exposure. Components of the tick saliva can cause transient erythema that should not be confused with Erythema Migrans. If you develop the bull's eye rash, fever, joint pains please return to the urgent care or f/u with your PCP or DR Montoya for further management. 2-Antibiotic prophylaxis with Doxycycline was given to you today to prevent lyme Disease. Lyme serology can be drawn in 2 weeks with your PCP to r/o Lyme disease since there is probability of negative results at early exposure. 3- Apply Bacitracin oint around tick bite 4-Your BP is elevated today. please decrease salt in your diet, monitor BP and if it continues to be elevated please f/u with your PCP for further management - Billing Disposition and Condition Condition: STABLE Disposition: Home
[2018-02-24] MEDS ORDERED: DOXYcycline CAP(*) 100 MG PO ONE (11:02)
== END 2018-02-24 11:12 | disposition home or self-care (01) ==
LOC: UCEAST 09:39
DX: S80.862A Insect bite (nonvenomous), left lower leg, initial encounter (principal); W57.XXXA Bitten or stung by nonvenomous insect and other nonvenomous arthropods, initial encounter; Y93.9 Activity, unspecified; Y92.9 Unspecified place or not applicable; R03.0 Elevated blood-pressure reading, without diagnosis of hypertension; R25.2 Cramp and spasm; Z88.4 Allergy status to anesthetic agent; Z88.2 Allergy status to sulfonamides; Z88.8 Allergy status to other drugs, medicaments and biological substances; Z83.3 Family history of diabetes mellitus; Z83.2 Family history of diseases of the blood and blood-forming organs and certain disorders involving the immune mechanism
CPT/HCPCS: 99212; A9270-GY; G0463